=== PATIENT | male | born 1955 | race Caucasian/White ===

== ENCOUNTER 2019-11-12 11:07 | Emergency (ER) | payer OTHER, SELFPAY ==
[~2019-11-12] VITALS: Ht 167.6 cm; Wt 81.6 kg
[2019-11-12 11:09] VITALS: BP 166/96; Ht 167.6 cm; Wt 81.6 kg
== END 2019-11-12 11:26 | disposition home or self-care (01) ==
LOC: ED 11:07
DX: U07.1 COVID-19 (principal); I10 Essential (primary) hypertension
CPT/HCPCS: U0003-CS

== ENCOUNTER 2019-11-29 12:51 | Emergency (ER) | payer OTHER, SELFPAY ==
[~2019-11-29] VITALS: Ht 167.6 cm; Wt 81.6 kg
[2019-11-29 13:00] VITALS: BP 121/86; Ht 167.6 cm; Wt 81.6 kg
== END 2019-11-29 13:09 | disposition home or self-care (01) ==
LOC: ED 12:51
DX: Z20.828 Contact with and (suspected) exposure to other viral communicable diseases (principal)